=== PATIENT | female | born 1955 | race Caucasian/White ===

== ENCOUNTER 2018-12-02 07:01 | Day surgery (SDC) | payer MEDICARE, OTHER ==
[2018-12-02] MEDS ORDERED: Sodium Chloride 0.9% 1,000 ML IV SCH (07:45)
[2018-12-02] MEDS ORDERED: fentaNYL 100 MCG/2 ML SDV ONE (07:55)
[2018-12-02] MEDS ORDERED: Midazolam 1 MG/ML 2 ML SDV ONE (07:55)
[2018-12-02] MEDS ORDERED: Propofol 200 MG/20 ML SDV ONE (07:55)
--- NOTE | 2018-12-02 10:53 | OR ---
DATE OF PROCEDURE: 12/02/2018 SURGEON: Oswaldo Gerardo MD PROCEDURE: Colonoscopy. FINDINGS: Ascending colon polyp, approximately 5 mm, completely removed using snare. COMPLICATIONS: None. CIRCULAR STUFFER: None. ANESTHESIA: MAC. PREOPERATIVE DIAGNOSIS: Screening colonoscopy. POSTOPERATIVE DIAGNOSIS: Screening colonoscopy. RISKS: Risks, benefits, alternatives, and limitations including, but not limited to, infection, bleeding, and perforation explained to the patient, who wished to proceed. PROCEDURE IN DETAIL: Patient was placed in left lateral decubitus position. A digital rectal exam was performed without abnormality. The scope was introduced and advanced atraumatically to the ileocecal valve. A photo was taken. The scope was brought back to the ascending, transverse, descending colon, and retroflexed. In the ascending colon, the aforementioned polyp was identified and completely removed using snare. The patient did have melanosis coli. No evidence of diverticulosis or any other abnormalities. The patient tolerated the procedure well. No abnormalities on retroflex. Oswaldo Gerardo MD /[id number]
== END 2018-12-02 10:30 | disposition home or self-care (01) ==
LOC: JP.SDS 07:01
PROVIDERS: ATTEND Surgery
DX: Z12.11 Encounter for screening for malignant neoplasm of colon (principal); D12.2 Benign neoplasm of ascending colon; K63.89 Other specified diseases of intestine; K21.9 Gastro-esophageal reflux disease without esophagitis; F41.9 Anxiety disorder, unspecified; F32.9 Major depressive disorder, single episode, unspecified
CPT/HCPCS: 45385; J2250; J2704; J3010; J7030

== ENCOUNTER 2019-11-12 01:37 | Emergency (ER) | payer MEDICARE, OTHER ==
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
== END 2019-11-12 03:06 | disposition home or self-care (01) ==
LOC: JP.ED 01:37
DX: L02.01 Cutaneous abscess of face (principal); Z91.048 Other nonmedicinal substance allergy status; Z91.040 Latex allergy status; Z88.5 Allergy status to narcotic agent; Z88.0 Allergy status to penicillin
CPT/HCPCS: 10060; 10160; 87070; 87077; 87186; 87205; 99283; 99283-25